=== PATIENT | female | born 1950 | race Caucasian/White ===

== ENCOUNTER 2023-07-30 11:39 | Inpatient (IN) | payer MEDICAID ==
[~2023-07-30] VITALS: Ht 157.5 cm; Wt 42.6 kg
[2023-07-30 12:11] LABS: BASOPHILS % (AUTO) 0.4 % (0.0-2.0); EOSINOPHILS % (AUTO) 0.3 % (1.0-6.0); HEMATOCRIT 44.2 % (36-46); HEMOGLOBIN 14.8 g/dL (12.0-16.0); LYMPHOCYTES # (AUTO) 0.9 K/uL (1.0-4.8); MEAN CORPUSCULAR HEMOGLOBIN 30.7 pg (26.0-34.0); MEAN CORPUSCULAR HGB CONC 33.5 G/dL (31.0-37.0); MEAN CORPUSCULAR VOLUME 92 fL (80-100); MONOCYTES # (AUTO) 0.4 K/uL (0.1-1.0); MONOCYTES % (AUTO) 6.5 % (2.0-9.0); NEUTROPHILS # (AUTO) 4.2 K/uL (1.8-7.7); NEUTROPHILS % (AUTO) 76.8 % (40.0-70.0); PLATELET COUNT (AUTO) 183 K/uL (150-450); RED BLOOD CELL COUNT(AUTO) 4.82 MIL/uL (4.00-5.20); RED CELL DISTRIBUTION WIDTH 13.2 % (11.5-14.5); WHITE BLOOD COUNT (AUTO) 5.5 K/uL (4.5-11.0)
[2023-07-30 12:19] LABS: ANION GAP 12 mmol/L (8-16); CALCIUM, TOTAL 8.9 mg/dL (8.8-10.5); CARBON DIOXIDE 26 mmol/L (22-29); CHLORIDE 107 mmol/L (98-107); GLOMERULAR FILTR. RATE CALC > 60 mL/min (>60); GLUCOSE,RANDOM 163 mg/dL (70-110); POTASSIUM 3.2 mmol/L (3.5-5.1); SODIUM SERUM 145 mmol/L (136-145); UREA NITROGEN, BLOOD 17 mg/dL (7-18)
[2023-07-30 12:27] LABS: ALANINE AMINOTRANSFERASE 22 U/L (12-78); ALBUMIN 3.6 g/dL (3.4-5.0); ALKALINE PHOSPHATASE 91 U/L (46-116); ASPARTATE AMINOTRANSFERASE 17 U/L (15-37); BILIRUBIN,TOTAL 0.3 mg/dL (0.1-1.0); TOTAL PROTEIN, SERUM 6.9 g/dL (6.4-8.2)
[2023-07-30 12:29] LABS: ALCOHOL, BLOOD (SERUM) < 3 mg/dL (0-10)
[2023-07-30] MEDS ORDERED: DiphenhydrAMINE HCL 50 MG/ML VIAL ONE (12:50)
[2023-07-30] MEDS ORDERED: HALOPERIDOL LACTATE 5 MG/ML VIAL ONE (12:50)
[2023-07-30] MEDS ORDERED: LORazepam 2 MG/ML VIAL ONE (12:50)
[2023-07-30] MEDS: DiphenhydrAMINE HCL 50 MG/ML VIAL IM ONE (12:55)
[2023-07-30] MEDS: LORazepam 2 MG/ML VIAL IM ONE ×2 (12:55→17:03)
[2023-07-30] MEDS: HALOPERIDOL LACTATE 5 MG/ML VIAL IM ONE ×2 (12:56→17:05)
[2023-07-30] MEDS: POTASSIUM CHLORIDE 10% 40 MEQ/30 ML LIQUID UDCUP PO ONE (15:02)
[2023-07-30] MEDS ORDERED: LORA-1000 PO (15:41)
[2023-07-30] MEDS: LORazepam 1 MG TABLET PO ONE (15:58)
[2023-07-30] MEDS: QUEtiapine FUMARATE 100 MG TABLET PO ONE ×2 (15:58→21:02)
[2023-08-01] MEDS: LORazepam 1 MG TABLET PO ONE (04:36)
[2023-08-01] MEDS: HALOPERIDOL 5 MG TABLET PO ONE (05:30)
[2023-08-01] MEDS: HALOPERIDOL LACTATE 5 MG/ML VIAL IM ONE ×2 (05:45→06:05)
[2023-08-01] MEDS: DiphenhydrAMINE HCL 50 MG/ML VIAL IM ONE ×2 (05:45→06:04)
[2023-08-01 19:26] LABS: PH,URINE DRUG SCREEN 6.5 (5.0-8.0)
[2023-08-01 19:32] LABS: ALCOHOL, URINE DRUG SCREEN NEGATIVE (NEGATIVE); AMPHET/METH SCREEN,URINE NEGATIVE (NEGATIVE); BARBITURATE SCREEN, URINE NEGATIVE (NEGATIVE); BENZODIAZEPINES SCREEN,URINE NEGATIVE (NEGATIVE); CANNABINOID SCREEN,URINE NEGATIVE (NEGATIVE); COCAINE SCREEN,URINE NEGATIVE (NEGATIVE); METHADONE SCREEN, URINE NEGATIVE (NEGATIVE); OPIATE SCREEN,URINE NEGATIVE (NEGATIVE); PHENCYCLIDINE SCREEN,URINE NEGATIVE (NEGATIVE)
[2023-08-02] MEDS: ZIPRASIDONE MESYLATE 20 MG/VIAL IM ONE ×2 (00:09→19:36)
[2023-08-02 07:58] LABS: COVID AG,FIA SOURCE NASAL SWAB
[2023-08-02 08:35] LABS: SARS-COV2 (COVID) ANTIGEN,FIA Negative (Negative)
[2023-08-02] MEDS ORDERED: SERT-158 PO (13:49)
[2023-08-02] MEDS ORDERED: QUET100T PO (13:49)
[2023-08-02] MEDS ORDERED: QUET200T PO (13:49)
[2023-08-02] MEDS: ZOLPIDEM TARTRATE 10 MG TABLET PO PRN (23:07)
[2023-08-02] MEDS: LORazepam 2 MG TABLET PO PRN (23:08)
[2023-08-03] MEDS: QUEtiapine FUMARATE 100 MG TABLET PO ONE ×2 (08:56→19:51)
[2023-08-04] MEDS ORDERED: OLANZapine 5 MG TABLET ONE (13:53)
[2023-08-04] MEDS: OLANZapine 5 MG TABLET PO PRN (13:55)
[2023-08-04] MEDS ORDERED: HALOPERIDOL LACTATE 5 MG/ML VIAL ONE (14:21)
[2023-08-04] MEDS ORDERED: LORazepam 2 MG/ML VIAL ONE (14:21)
[2023-08-04] MEDS ORDERED: DiphenhydrAMINE HCL 50 MG/ML VIAL ONE (14:21)
[2023-08-04] MEDS: HALOPERIDOL LACTATE 5 MG/ML VIAL IM ONE (14:24)
[2023-08-04] MEDS: LORazepam 2 MG/ML VIAL IM ONE (14:25)
[2023-08-04] MEDS: DiphenhydrAMINE HCL 50 MG/ML VIAL IM ONE (14:25)
[2023-08-05 03:35] LABS: BASOPHILS % (AUTO) 0.5 % (0.0-2.0); EOSINOPHILS % (AUTO) 0.8 % (1.0-6.0); HEMATOCRIT 45.2 % (36-46); HEMOGLOBIN 15.4 g/dL (12.0-16.0); LYMPHOCYTES # (AUTO) 1.3 K/uL (1.0-4.8); LYMPHOCYTES % (AUTO) 25.6 % (22.0-44.0); MEAN CORPUSCULAR HEMOGLOBIN 31.1 pg (26.0-34.0); MEAN CORPUSCULAR HGB CONC 34.1 G/dL (31.0-37.0); MEAN CORPUSCULAR VOLUME 91 fL (80-100); MONOCYTES # (AUTO) 0.6 K/uL (0.1-1.0); MONOCYTES % (AUTO) 10.9 % (2.0-9.0); NEUTROPHILS # (AUTO) 3.2 K/uL (1.8-7.7); NEUTROPHILS % (AUTO) 62.2 % (40.0-70.0); PLATELET COUNT (AUTO) 175 K/uL (150-450); RED BLOOD CELL COUNT(AUTO) 4.97 MIL/uL (4.00-5.20); RED CELL DISTRIBUTION WIDTH 13.2 % (11.5-14.5); WHITE BLOOD COUNT (AUTO) 5.2 K/uL (4.5-11.0)
[2023-08-05 03:50] LABS: ALANINE AMINOTRANSFERASE 33 U/L (12-78); ALBUMIN 3.4 g/dL (3.4-5.0); ALKALINE PHOSPHATASE 84 U/L (46-116); ANION GAP 9 mmol/L (8-16); ASPARTATE AMINOTRANSFERASE 38 U/L (15-37); BILIRUBIN,TOTAL 0.7 mg/dL (0.1-1.0); CALCIUM, TOTAL 9.2 mg/dL (8.8-10.5); CARBON DIOXIDE 28 mmol/L (22-29); CHLORIDE 103 mmol/L (98-107); CREATININE 0.54 mg/dL (0.60-1.30); GLOMERULAR FILTR. RATE CALC > 60 mL/min (>60); GLUCOSE,RANDOM 88 mg/dL (70-110); SODIUM SERUM 140 mmol/L (136-145); TOTAL PROTEIN, SERUM 6.5 g/dL (6.4-8.2); UREA NITROGEN, BLOOD 18 mg/dL (7-18)
[2023-08-05] MEDS: QUEtiapine FUMARATE 100 MG TABLET PO SCH ×2 (09:11→21:28)
[2023-08-05] MEDS: POTASSIUM CHLORIDE 10% 40 MEQ/30 ML LIQUID UDCUP PO ONE ×2 (14:37→17:21)
[2023-08-05] MEDS ORDERED: MAG HYDROX/ALUMINUM HYD/SIMETH ES 30 ML SUSPENSION UDCUP PO PRN (20:30)
[2023-08-05] MEDS ORDERED: ALBUTEROL SULFATE HFA 90 MCG/PUFF 8 GM INHALER IH PRN (20:30)
[2023-08-05] MEDS ORDERED: NICOTINE 14 MG/24 HOUR PATCH TD PRN (20:30)
[2023-08-05] MEDS ORDERED: PETROLATUM,WHITE 28 GM JELLY TP PRN (20:30)
[2023-08-05] MEDS ORDERED: ONDANSETRON HCL 4 MG TABLET PO PRN (20:30)
[2023-08-05] MEDS ORDERED: IBUPROFEN 400 MG TABLET PO PRN (20:30)
[2023-08-05] MEDS ORDERED: DOCUSATE SODIUM 100 MG CAPSULE PO PRN (20:30)
[2023-08-05] MEDS ORDERED: CloNIDine HCL 0.1 MG TABLET PO PRN (20:30)
[2023-08-05] MEDS: LORazepam 2 MG TABLET PO PRN (21:28)
[2023-08-05 22:38] LABS: APPEARANCE,URINE HAZY (CLEAR); BILIRUBIN,URINE NEGATIVE (NEGATIVE); COLOR,URINE YELLOW (YELLOW); GLUCOSE, URINE (UA) TRACE mg/dL (NEGATIVE); KETONES,URINE TRACE mg/dL (NEGATIVE); LEUKOCYTE ESTERASE ,URINE LARGE (NEGATIVE); NITRATE,URINE NEGATIVE (NEGATIVE); OCCULT BLOOD,URINE NEGATIVE (NEGATIVE); PH,URINE 6.5 (5.0-8.0); PROTEIN,URINE TRACE mg/dL (NEGATIVE); SPECIFIC GRAVITIY, URINE 1.023 (1.003-1.030); UROBILINOGEN,URINE <=1.0 mg/dL (<=1.0)
[2023-08-05 22:49] LABS: RBC,URINE None Seen /HPF (0-2); SQUAMOUS EPITHELIAL CELL,UR Few /LPF (None Seen); WBC,URINE 26-50 /HPF (0-5)
[2023-08-05 22:50] LABS: BACTERIA,URINE Few /HPF (None Seen)
[2023-08-06 01:02] VITALS: BP 142/80; PULSE 84; RESP 18; TEMP 97.8; O2SAT 100
[2023-08-06 01:25] VITALS: BP 142/80; PULSE 84; RESP 18; TEMP 97.8
[2023-08-06 06:36] LABS: HEMOGLOBIN A1C 5.5 % (3.8-5.6)
[2023-08-06 07:41] LABS: CHOL/HDL RATIO 2.1 (3.9-5.7); THYROID STIMULATING HORMONE 0.92 uIU/mL (0.36-3.74)
[2023-08-06 08:31] VITALS: BP 147/89; PULSE 101; RESP 20; TEMP 98
[2023-08-06] MEDS: POTASSIUM CHLORIDE 10% 40 MEQ/30 ML LIQUID UDCUP PO ONE (10:39)
[2023-08-06] MEDS: CEPHALEXIN MONOHYDRATE 500 MG CAPSULE PO SCH (12:39)
[2023-08-06 22:17] VITALS: BP 136/73; PULSE 100; RESP 18; TEMP 98.4
[2023-08-07 07:46] LABS: MAGNESIUM 2.2 mg/dL (1.80-2.40); PHOSPHORUS 4.5 mg/dL (2.5-4.9); POTASSIUM 4.2 mmol/L (3.5-5.1)
[2023-08-07] MEDS: MULTIVITAMINS WITH MINERALS, THERAPEUTIC TABLET PO SCH (09:03)
[2023-08-07] MEDS: THIAMINE 100 MG TABLET PO SCH (09:03)
[2023-08-07 09:15] VITALS: BP 123/78; PULSE 101; PULSE 11; RESP 18; TEMP 98
[2023-08-07 20:11] VITALS: BP 121/71; PULSE 77; RESP 18; TEMP 97.3
[2023-08-08 09:22] VITALS: BP 142/99; PULSE 79; RESP 18; TEMP 98
[2023-08-08 23:15] VITALS: RESP 18
[2023-08-09 08:38] VITALS: BP 137/67; PULSE 87; RESP 18; TEMP 97.5
[2023-08-09] MEDS: OLANZapine 5 MG TABLET PO PRN (17:16)
[2023-08-09 20:13] VITALS: BP 153/75; PULSE 100; RESP 18; TEMP 96.7
[2023-08-10 09:09] VITALS: BP 111/92; PULSE 97; RESP 18; TEMP 98
[2023-08-10 20:07] VITALS: BP 147/80; PULSE 94; RESP 18; TEMP 98.9
[2023-08-11 09:17] VITALS: BP 122/66; PULSE 103; RESP 18; TEMP 98.3
[2023-08-11] MEDS: OLANZapine 5 MG RAPDIS TABLET PO PRN (16:00)
[2023-08-11 20:42] VITALS: BP 140/81; PULSE 98; RESP 19; TEMP 98.7
[2023-08-12 08:58] VITALS: BP 134/67; PULSE 91; RESP 20; TEMP 98.7
[2023-08-12 21:12] VITALS: BP 108/67; PULSE 66; RESP 18; TEMP 98.1
[2023-08-13 08:10] VITALS: BP 141/57; PULSE 103; RESP 18; TEMP 98
[2023-08-13 22:04] VITALS: BP 146/90; PULSE 100; RESP 18; TEMP 98.1
[2023-08-14 11:53] VITALS: BP 148/78; PULSE 93; RESP 18; TEMP 98
[2023-08-14] MEDS: LORazepam 2 MG/ML VIAL IM ONE (18:13)
[2023-08-14 20:14] VITALS: BP 132/82; PULSE 86; RESP 18; TEMP 97.9
[2023-08-15 20:42] VITALS: BP 145/69; PULSE 94; RESP 18; TEMP 97.8
[2023-08-16 08:42] VITALS: BP 129/75; PULSE 105; RESP 18; TEMP 98.1
[2023-08-16 20:04] VITALS: BP 155/73; PULSE 105; RESP 18; TEMP 99.1
[2023-08-17 13:04] VITALS: BP 112/69; PULSE 93; RESP 17; TEMP 98
[2023-08-17 20:11] VITALS: BP 135/82; PULSE 102; RESP 18; TEMP 96.5
[2023-08-18 08:24] VITALS: BP 113/85; PULSE 108; RESP 18; TEMP 98.2
[2023-08-18 20:31] VITALS: BP 119/81; PULSE 106; RESP 18; TEMP 97.6
[2023-08-19 10:35] VITALS: BP 136/61; PULSE 75; RESP 18; TEMP 98
[2023-08-19 20:31] VITALS: BP 108/66; PULSE 105; RESP 19; TEMP 98.2
[2023-08-19] MEDS: QUEtiapine FUMARATE 300 MG TABLET PO SCH (21:23)
[2023-08-20 09:40] VITALS: BP 142/58; PULSE 104; RESP 18; TEMP 97.7
[2023-08-20 20:44] VITALS: BP 131/79; PULSE 98; RESP 18; TEMP 98.1
[2023-08-21 08:42] VITALS: BP 146/88; PULSE 100; RESP 17; TEMP 97.7
[2023-08-21 20:36] VITALS: BP 154/94; PULSE 89; RESP 18; TEMP 97.9
[2023-08-22 08:13] VITALS: BP 132/82; PULSE 72; RESP 18; TEMP 98.1
[2023-08-22 20:05] VITALS: BP 139/76; PULSE 103; RESP 18; TEMP 97.9
[2023-08-23 02:03] LABS: COVID AG,FIA SOURCE NASAL SWAB
[2023-08-23 02:59] LABS: SARS-COV2 (COVID) ANTIGEN,FIA Negative (Negative)
[2023-08-23 09:12] VITALS: BP 143/95; PULSE 100; RESP 18; TEMP 97.8
[2023-08-23] MEDS: MEGESTROL ACETATE 400 MG/10 ML SUSPENSION UDCUP PO SCH (11:00)
[2023-08-23 20:15] VITALS: BP 137/79; PULSE 97; RESP 18; TEMP 98.6
[2023-08-24 05:55] VITALS: BP 130/86; PULSE 82; RESP 20; TEMP 98.1
[2023-08-24 08:39] VITALS: BP 95/65; PULSE 78; RESP 18; TEMP 98.2
[2023-08-24 14:05] LABS: BASOPHILS % (AUTO) 0.2 % (0.0-2.0); EOSINOPHILS % (AUTO) 0.3 % (1.0-6.0); HEMATOCRIT 47.2 % (36-46); HEMOGLOBIN 16.2 g/dL (12.0-16.0); LYMPHOCYTES # (AUTO) 1.1 K/uL (1.0-4.8); LYMPHOCYTES % (AUTO) 13.7 % (22.0-44.0); MEAN CORPUSCULAR HEMOGLOBIN 30.9 pg (26.0-34.0); MEAN CORPUSCULAR HGB CONC 34.4 G/dL (31.0-37.0); MEAN CORPUSCULAR VOLUME 90 fL (80-100); MONOCYTES # (AUTO) 0.5 K/uL (0.1-1.0); NEUTROPHILS # (AUTO) 6.2 K/uL (1.8-7.7); NEUTROPHILS % (AUTO) 78.8 % (40.0-70.0); PLATELET COUNT (AUTO) 199 K/uL (150-450); RED BLOOD CELL COUNT(AUTO) 5.25 MIL/uL (4.00-5.20); RED CELL DISTRIBUTION WIDTH 12.8 % (11.5-14.5); WHITE BLOOD COUNT (AUTO) 7.8 K/uL (4.5-11.0)
[2023-08-24 14:16] LABS: ALANINE AMINOTRANSFERASE 33 U/L (12-78); ALBUMIN 3.4 g/dL (3.4-5.0); ALKALINE PHOSPHATASE 106 U/L (46-116); ANION GAP 11 mmol/L (8-16); ASPARTATE AMINOTRANSFERASE 24 U/L (15-37); BILIRUBIN,TOTAL 0.5 mg/dL (0.1-1.0); CALCIUM, TOTAL 10.2 mg/dL (8.8-10.5); CARBON DIOXIDE 29 mmol/L (22-29); CHLORIDE 109 mmol/L (98-107); CREATININE 0.58 mg/dL (0.60-1.30); GLOMERULAR FILTR. RATE CALC > 60 mL/min (>60); GLUCOSE,RANDOM 114 mg/dL (70-110); SODIUM SERUM 148 mmol/L (136-145); TOTAL PROTEIN, SERUM 7.6 g/dL (6.4-8.2); UREA NITROGEN, BLOOD 30 mg/dL (7-18)
[2023-08-24 20:24] VITALS: BP 121/70; PULSE 86; RESP 18; TEMP 98
[2023-08-25 08:11] VITALS: BP 134/84; PULSE 76; RESP 18; TEMP 97.6
[2023-08-25] MEDS: POTASSIUM CHLORIDE 20 MEQ ER TABLET PO ONE (13:06)
[2023-08-25 20:22] VITALS: BP 130/80; PULSE 78; RESP 18; TEMP 97.8
[2023-08-26 08:21] VITALS: BP 128/77; PULSE 76; RESP 18; TEMP 97.1
[2023-08-26 20:25] VITALS: BP 128/72; PULSE 79; RESP 18; TEMP 97.9
[2023-08-26] MEDS: ZOLPIDEM TARTRATE 10 MG TABLET PO PRN (21:02)
[2023-08-26 21:19] LABS: COVID AG,FIA SOURCE NASAL SWAB
[2023-08-26 21:48] LABS: SARS-COV2 (COVID) ANTIGEN,FIA Negative (Negative)
[2023-08-27 07:19] LABS: ALANINE AMINOTRANSFERASE 64 U/L (12-78); ALBUMIN 3.4 g/dL (3.4-5.0); ALKALINE PHOSPHATASE 104 U/L (46-116); ANION GAP 10 mmol/L (8-16); ASPARTATE AMINOTRANSFERASE 30 U/L (15-37); BILIRUBIN,TOTAL 0.7 mg/dL (0.1-1.0); CALCIUM, TOTAL 10.2 mg/dL (8.8-10.5); CARBON DIOXIDE 29 mmol/L (22-29); CHLORIDE 110 mmol/L (98-107); CREATININE 0.61 mg/dL (0.60-1.30); GLOMERULAR FILTR. RATE CALC > 60 mL/min (>60); GLUCOSE,RANDOM 131 mg/dL (70-110); POTASSIUM 3.1 mmol/L (3.5-5.1); SODIUM SERUM 149 mmol/L (136-145); TOTAL PROTEIN, SERUM 7.5 g/dL (6.4-8.2); UREA NITROGEN, BLOOD 29 mg/dL (7-18)
[2023-08-27 12:31] VITALS: BP 123/70; PULSE 80; RESP 17; TEMP 98
[2023-08-27 20:52] VITALS: BP 127/81; PULSE 72; RESP 18; TEMP 98.1
[2023-08-28] MEDS: LOPERAMIDE HCL 2 MG CAPSULE PO PRN (03:35)
[2023-08-28 09:53] VITALS: BP 96/50; PULSE 100; RESP 18; TEMP 97.5
[2023-08-28] MEDS: POTASSIUM CHLORIDE 10% 40 MEQ/30 ML LIQUID UDCUP PO ONE (11:37)
[2023-08-29 04:00] VITALS: BP 132/78; PULSE 100; RESP 18
[2023-08-29] MEDS: ACETAMINOPHEN 325 MG TABLET PO PRN (04:01)
[2023-08-29 05:00] VITALS: RESP 18
[2023-08-29 08:35] VITALS: BP 99/80; PULSE 70; RESP 17; TEMP 98
[2023-08-29 08:43] VITALS: BP 99/60; PULSE 70; RESP 18; TEMP 98
[2023-08-29] MEDS: POTASSIUM CHLORIDE 10% 40 MEQ/30 ML LIQUID UDCUP PO ONE (12:18)
[2023-08-29 19:08] LABS: COVID AG,FIA SOURCE NASAL SWAB
[2023-08-29 19:40] LABS: SARS-COV2 (COVID) ANTIGEN,FIA Negative (Negative)
[2023-08-29 20:02] VITALS: BP 120/77; PULSE 72; RESP 18; TEMP 97.3
[2023-08-30] VITALS (8 sets, daily range): BP systolic 115–152; BP diastolic 69–98; PULSE 73–104; RESP 17–18; TEMP 97.6–98.8
[2023-08-31 08:00] VITALS: BP 141/76; PULSE 108; RESP 18; TEMP 97.8
[2023-08-31 21:19] VITALS: BP 119/72; PULSE 108; RESP 20; TEMP 97.9
[2023-09-01 08:45] VITALS: BP 124/68; PULSE 97; RESP 18; TEMP 97.4
[2023-09-01 20:32] VITALS: BP 117/74; PULSE 92; RESP 18; TEMP 97.6
[2023-09-02 08:55] VITALS: BP 137/86; PULSE 89; RESP 19; TEMP 98.2
[2023-09-02 20:04] VITALS: BP 129/82; PULSE 94; RESP 18; TEMP 97.2
[2023-09-03 08:52] VITALS: BP 120/75; PULSE 88; RESP 18; TEMP 98
[2023-09-03 19:36] VITALS: BP 131/78; PULSE 92; RESP 18; TEMP 98.8
[2023-09-03 20:59] VITALS: RESP 18
[2023-09-04 09:19] VITALS: BP 145/84; PULSE 76; RESP 18; TEMP 98.6
[2023-09-04] MEDS: POTASSIUM CHLORIDE 10% 40 MEQ/30 ML LIQUID UDCUP PO ONE (10:31)
[2023-09-04 17:12] LABS: ANION GAP 2 mmol/L (8-16); CALCIUM, TOTAL 9.3 mg/dL (8.8-10.5); CARBON DIOXIDE 30 mmol/L (22-29); CHLORIDE 104 mmol/L (98-107); CREATININE 0.61 mg/dL (0.60-1.30); GLOMERULAR FILTR. RATE CALC > 60 mL/min (>60); GLUCOSE,RANDOM 101 mg/dL (70-110); POTASSIUM 5.3 mmol/L (3.5-5.1); SODIUM SERUM 136 mmol/L (136-145); UREA NITROGEN, BLOOD 16 mg/dL (7-18)
[2023-09-04 20:48] VITALS: RESP 18; TEMP 98.3
[2023-09-05] MEDS ORDERED: LORazepam 2 MG/ML VIAL ONE (09:19)
[2023-09-05 10:03] VITALS: BP 134/101; PULSE 113; RESP 20; TEMP 96
[2023-09-05 20:01] VITALS: BP 101/74; PULSE 76; RESP 18; TEMP 97.6
[2023-09-06 08:19] VITALS: BP 106/57; PULSE 67; RESP 19; TEMP 96.7
[2023-09-06 20:01] VITALS: BP 114/58; PULSE 95; RESP 18; TEMP 98.9
[2023-09-07 09:06] VITALS: BP 104/52; PULSE 68; RESP 16; TEMP 98.6
[2023-09-07 23:58] VITALS: RESP 18
[2023-09-08 08:08] VITALS: BP 141/75; PULSE 86; RESP 17; TEMP 97.5
[2023-09-08 20:05] VITALS: BP 135/81; PULSE 95; RESP 18; TEMP 98
[2023-09-09 09:30] VITALS: BP 160/97; PULSE 104; RESP 18; TEMP 98.1
[2023-09-09 21:18] VITALS: BP 128/70; PULSE 87; RESP 18; TEMP 97.6
[2023-09-10 10:14] VITALS: BP 120/53; PULSE 92; RESP 18; TEMP 97.8
[2023-09-10 20:04] VITALS: BP 156/81; PULSE 101; RESP 18; TEMP 98
[2023-09-11 08:07] VITALS: BP 151/94; PULSE 95; RESP 19; TEMP 97.8
[2023-09-11 20:27] VITALS: BP 140/68; PULSE 97; RESP 18; TEMP 98.6
[2023-09-12 08:53] VITALS: BP 121/83; PULSE 98; RESP 18; TEMP 98.4
[2023-09-12 20:32] VITALS: BP 132/74; PULSE 83; RESP 17
[2023-09-13 08:42] VITALS: BP 110/70; PULSE 99; RESP 18; TEMP 98
[2023-09-13 20:03] VITALS: RESP 18
[2023-09-14 09:02] VITALS: BP 120/80; PULSE 90; RESP 17; TEMP 98
[2023-09-14 20:35] VITALS: BP 136/72; PULSE 95; RESP 17; TEMP 98.1
[2023-09-15 09:57] VITALS: BP 105/65; PULSE 51; RESP 18; TEMP 97.7
[2023-09-15 21:12] VITALS: BP 146/88; PULSE 98; RESP 20; TEMP 98.3
[2023-09-16 10:05] VITALS: BP 136/90; PULSE 76; RESP 17; TEMP 97.7
[2023-09-16 21:04] VITALS: BP 130/85; PULSE 75; RESP 18; TEMP 97.8
[2023-09-17 08:14] VITALS: BP 144/74; PULSE 97; RESP 18; TEMP 97.4
[2023-09-17 20:23] VITALS: BP 139/81; PULSE 87; RESP 18; TEMP 97.7
[2023-09-18 08:00] VITALS: BP 121/62; PULSE 96; RESP 18; TEMP 98.4
[2023-09-18 20:02] VITALS: BP 121/72; PULSE 62; RESP 18; TEMP 97.5
[2023-09-19 08:00] VITALS: BP 127/70; PULSE 100; RESP 16
[2023-09-19 20:45] VITALS: BP 145/85; PULSE 98; RESP 18; TEMP 98.3
[2023-09-20 08:05] VITALS: BP 123/73; PULSE 72; RESP 18; TEMP 98.1
[2023-09-20 20:01] VITALS: BP 133/80; PULSE 81; RESP 18; TEMP 97.9
[2023-09-21 08:54] VITALS: BP 137/73; PULSE 74; RESP 18; TEMP 97
[2023-09-21 20:36] VITALS: BP 137/77; PULSE 101; RESP 18; TEMP 98.4
[2023-09-22 08:00] VITALS: BP 149/100; PULSE 92; RESP 18; TEMP 98
[2023-09-22 20:22] VITALS: BP 138/81; PULSE 86; RESP 19; TEMP 97.8
[2023-09-23 09:19] VITALS: BP 137/84; PULSE 102; RESP 17; TEMP 98.1
[2023-09-23 20:18] VITALS: RESP 18; TEMP 98.2
[2023-09-24 08:12] VITALS: BP 138/76; PULSE 100; RESP 18; TEMP 97.9
[2023-09-24 22:41] VITALS: BP 127/84; PULSE 98; RESP 19; TEMP 97.6
[2023-09-25 08:43] VITALS: BP 132/86; PULSE 74; RESP 20; TEMP 97.3
[2023-09-25 21:20] VITALS: BP 130/80; PULSE 70; RESP 18; TEMP 97.7
[2023-09-26 09:05] VITALS: BP 140/100; PULSE 71; RESP 18; TEMP 97.9
[2023-09-26 20:07] VITALS: BP 138/95; PULSE 70; RESP 19; TEMP 97.8
[2023-09-27 08:37] VITALS: BP 152/78; PULSE 100; RESP 20; TEMP 98
[2023-09-27 21:05] VITALS: BP 133/81; PULSE 93; RESP 18; TEMP 97.9
[2023-09-28 13:45] VITALS: BP 139/115; PULSE 75; RESP 18; TEMP 98.3
[2023-09-28 20:04] VITALS: BP 125/65; PULSE 81; RESP 18; TEMP 97.8
[2023-09-29 15:21] VITALS: BP 152/89; PULSE 97; RESP 18; TEMP 97.8
[2023-09-29 20:15] VITALS: BP 125/66; PULSE 92; RESP 18; TEMP 97.6
[2023-09-30 16:12] VITALS: BP 153/83; PULSE 109; RESP 19; TEMP 98
[2023-09-30 20:23] VITALS: RESP 18
[2023-10-01 09:35] VITALS: BP 120/79; PULSE 80; RESP 16; TEMP 97.6
[2023-10-01 20:09] VITALS: RESP 18
[2023-10-02 09:40] VITALS: BP 138/80; PULSE 89; RESP 18; TEMP 97.8
[2023-10-02 21:42] VITALS: BP 142/83; PULSE 96; RESP 18; TEMP 97.3
[2023-10-03 09:14] VITALS: BP 145/72; PULSE 95; RESP 19; TEMP 98.1
[2023-10-03 16:47] VITALS: BP 130/83; PULSE 92; RESP 18; TEMP 97.8
[2023-10-03 20:28] VITALS: BP 128/57; PULSE 90; RESP 18; TEMP 97.9
[2023-10-04 08:50] VITALS: BP 141/75; PULSE 62; RESP 18; TEMP 97
[2023-10-04 10:25] LABS: ALANINE AMINOTRANSFERASE 28 U/L (12-78); ALBUMIN 3.4 g/dL (3.4-5.0); ALKALINE PHOSPHATASE 80 U/L (46-116); ANION GAP 7 mmol/L (8-16); ASPARTATE AMINOTRANSFERASE 18 U/L (15-37); BILIRUBIN,TOTAL 0.5 mg/dL (0.1-1.0); CARBON DIOXIDE 32 mmol/L (22-29); CHLORIDE 104 mmol/L (98-107); CREATININE 0.75 mg/dL (0.60-1.30); GLOMERULAR FILTR. RATE CALC > 60 mL/min (>60); GLUCOSE,RANDOM 144 mg/dL (70-110); POTASSIUM 3.3 mmol/L (3.5-5.1); SODIUM SERUM 143 mmol/L (136-145); TOTAL PROTEIN, SERUM 7.3 g/dL (6.4-8.2); UREA NITROGEN, BLOOD 26 mg/dL (7-18)
[2023-10-04] MEDS: POTASSIUM CHLORIDE 10% 40 MEQ/30 ML LIQUID UDCUP PO ONE (20:36)
[2023-10-04 20:50] VITALS: BP 150/95; PULSE 72; RESP 18; TEMP 97.7
[2023-10-05 08:41] VITALS: BP 148/85; PULSE 104; RESP 19; TEMP 97.6
[2023-10-05] MEDS: POTASSIUM CHLORIDE 10% 40 MEQ/30 ML LIQUID UDCUP PO ONE (14:27)
[2023-10-05 20:07] VITALS: BP 133/79; PULSE 98; RESP 17; TEMP 97.4
[2023-10-06 08:36] VITALS: BP 123/75; PULSE 97; RESP 18; TEMP 97.6
[2023-10-06 21:00] VITALS: BP 107/86; PULSE 103; RESP 18; TEMP 97.2
[2023-10-07 08:03] VITALS: BP 112/72; PULSE 7; PULSE 72; RESP 18; TEMP 98.1
[2023-10-07] MEDS: LORazepam 2 MG/ML VIAL IM ONE (11:48)
[2023-10-07 20:19] VITALS: BP 117/77; PULSE 84; RESP 18; TEMP 98
[2023-10-08 10:35] VITALS: RESP 18; TEMP 97.2
[2023-10-08 20:21] VITALS: BP 147/83; PULSE 107; RESP 18; TEMP 98.4
[2023-10-09 09:03] VITALS: BP 149/64; PULSE 82; RESP 18; TEMP 98.1
[2023-10-09 20:02] VITALS: BP 123/77; PULSE 72; RESP 18; TEMP 98.1
[2023-10-10 08:49] VITALS: BP 96/63; PULSE 99; RESP 19; TEMP 97.5
[2023-10-10 21:22] VITALS: BP 112/81; PULSE 78; RESP 18; TEMP 97.1
[2023-10-11 08:51] VITALS: BP 100/64; PULSE 69; RESP 17; TEMP 97.6
[2023-10-11 08:54] VITALS: BP 136/82; PULSE 92; RESP 18; TEMP 97.3
[2023-10-11 20:13] VITALS: BP 124/76; PULSE 82; RESP 18; TEMP 97.1
[2023-10-12 08:44] VITALS: BP 124/76; PULSE 86; RESP 18; TEMP 97.1
[2023-10-12 20:51] VITALS: BP 152/83; PULSE 103; RESP 18; TEMP 98
[2023-10-13 08:00] VITALS: BP 159/83; PULSE 110; RESP 20
[2023-10-13 21:54] VITALS: BP 130/80; PULSE 86; RESP 18; TEMP 97.6
[2023-10-14 08:08] VITALS: BP 133/88; PULSE 88; RESP 20; TEMP 98
[2023-10-14 20:12] VITALS: BP 121/77; PULSE 82; RESP 18; TEMP 97.1
[2023-10-15 08:31] VITALS: BP 131/81; PULSE 77; RESP 17; TEMP 98
[2023-10-15 20:04] VITALS: BP 119/77; PULSE 74; RESP 18; TEMP 97.3
[2023-10-16 12:42] VITALS: BP 123/80; PULSE 80; RESP 17; TEMP 98
[2023-10-17] MEDS: LORazepam 1 MG TABLET PO PRN (08:26)
[2023-10-17 09:07] VITALS: BP 113/66; PULSE 84; RESP 18; TEMP 98.4
[2023-10-17 20:20] VITALS: BP 138/92; PULSE 86; RESP 18; TEMP 98.2
[2023-10-18 11:14] VITALS: BP 132/94; PULSE 112; RESP 18; TEMP 97.4
[2023-10-18 22:04] VITALS: BP 125/80; PULSE 99; RESP 17; TEMP 98
[2023-10-19] MEDS: BISACODYL 10 MG RECTAL RECTAL SUPPOSITORY PR SCH (08:13)
[2023-10-19] MEDS: ESCITALOPRAM OXALATE 10 MG TABLET PO SCH (08:13)
[2023-10-19 13:36] VITALS: RESP 18
[2023-10-19 20:45] VITALS: RESP 18
[2023-10-20 08:00] VITALS: BP 148/95; PULSE 95; RESP 20; TEMP 98.4
[2023-10-20 20:42] VITALS: BP 148/83; PULSE 94; RESP 17; TEMP 98.4
[2023-10-21 11:24] VITALS: BP 148/85; PULSE 96; RESP 18; TEMP 96.6
[2023-10-21 20:36] VITALS: BP 110/68; PULSE 99; RESP 18; TEMP 98.4
[2023-10-22 09:06] VITALS: BP 129/93; PULSE 89; RESP 18; TEMP 98.2
[2023-10-22 20:44] VITALS: BP 121/77; PULSE 96; RESP 18; TEMP 97.9
[2023-10-23 08:30] VITALS: BP 150/76; PULSE 89; RESP 18; TEMP 98.2
[2023-10-23 20:38] VITALS: BP 139/86; PULSE 85; RESP 18; TEMP 98.9
[2023-10-24 08:13] VITALS: BP 125/88; PULSE 95; RESP 18; TEMP 97.5
[2023-10-24 20:03] VITALS: BP 128/81; PULSE 74; RESP 17; TEMP 97.9
[2023-10-25 09:19] VITALS: BP 104/79; PULSE 79; RESP 18; TEMP 97.8
[2023-10-25 20:36] VITALS: BP 124/80; PULSE 76; RESP 18; TEMP 97.4
[2023-10-26 09:26] VITALS: BP 122/80; PULSE 100; RESP 18; TEMP 98.9
[2023-10-26 20:19] VITALS: BP 136/69; PULSE 89; RESP 19; TEMP 98.1
[2023-10-27 08:08] VITALS: BP 103/75; PULSE 81; RESP 19; TEMP 98.9
[2023-10-27 20:49] VITALS: RESP 18; TEMP 98.9
[2023-10-28] MEDS: LORazepam 0.5 MG TABLET PO PRN (08:50)
[2023-10-28 11:02] VITALS: BP 143/76; PULSE 107; RESP 18; TEMP 97.4
[2023-10-28 20:04] VITALS: BP 121/79; PULSE 82; RESP 18; TEMP 97.3
[2023-10-29 08:31] VITALS: BP 120/42; PULSE 67; RESP 16; TEMP 98.5
[2023-10-29 22:51] VITALS: BP 125/84; PULSE 91; RESP 18; TEMP 98.4
[2023-10-30 09:00] VITALS: BP 138/90; PULSE 103; RESP 18; TEMP 97.5
[2023-10-30 20:24] VITALS: BP 125/71; PULSE 62; RESP 18; TEMP 97.1
[2023-10-31 10:30] VITALS: BP 129/87; PULSE 95; RESP 16; TEMP 97.3
[2023-10-31 20:04] VITALS: BP 121/82; PULSE 101; RESP 18; TEMP 98.5
[2023-10-31 20:50] VITALS: BP 121/82; PULSE 101; RESP 18; TEMP 98.5
[2023-11-01 08:20] VITALS: BP 148/90; PULSE 103; RESP 18; TEMP 98.6
[2023-11-01 20:10] VITALS: BP 131/75; PULSE 97; RESP 18; TEMP 98.2
[2023-11-02 16:59] VITALS: BP 120/70; PULSE 70; RESP 20; TEMP 98
[2023-11-02 20:20] VITALS: BP 134/89; PULSE 60; RESP 16; TEMP 98.2
[2023-11-02 22:28] VITALS: BP 134/89; PULSE 60; RESP 18; TEMP 98.2
[2023-11-03 09:00] VITALS: BP 134/55; PULSE 82; RESP 18; TEMP 98.6
[2023-11-03 20:36] VITALS: BP 126/75; PULSE 77; RESP 18; TEMP 98.4
[2023-11-04 09:24] VITALS: BP 123/90; PULSE 98; RESP 18; TEMP 97.8
[2023-11-04 20:26] VITALS: BP 137/92; PULSE 88; RESP 18; TEMP 98.1
[2023-11-04] MEDS: VALPROIC ACID 250 MG CAPSULE PO SCH (20:54)
[2023-11-05 13:03] VITALS: RESP 18; TEMP 97.5
[2023-11-05 20:03] VITALS: BP 137/80; PULSE 97; RESP 18; TEMP 97.8
[2023-11-05] MEDS: VALPROIC ACID 250 MG/5 ML SOLUTION UDCUP PO SCH (21:15)
[2023-11-06 08:14] VITALS: BP 141/91; PULSE 97; RESP 17; TEMP 98.3
[2023-11-06 21:24] VITALS: BP 115/73; PULSE 100; RESP 18; TEMP 97.8
[2023-11-07 08:23] VITALS: BP 120/67; PULSE 106; RESP 17; TEMP 98.6
[2023-11-07 20:10] VITALS: BP 116/81; PULSE 62; RESP 18; TEMP 97.1
[2023-11-07 20:33] VITALS: BP 119/73; PULSE 98; RESP 18; TEMP 97.7
[2023-11-08 08:04] VITALS: BP 130/61; PULSE 58; RESP 18; TEMP 97.6
[2023-11-08 20:12] VITALS: BP 166/60; PULSE 99; RESP 18; TEMP 98
[2023-11-09 10:12] VITALS: BP 131/79; PULSE 96; RESP 18; TEMP 98
[2023-11-09 20:09] VITALS: RESP 18
[2023-11-10 08:29] VITALS: BP 108/65; PULSE 81; RESP 18; TEMP 98.6
[2023-11-10 20:15] VITALS: RESP 18; TEMP 98.4
[2023-11-11 09:43] VITALS: RESP 18; TEMP 98.4
[2023-11-11 20:57] VITALS: BP 118/67; PULSE 99; RESP 18; TEMP 99.2
[2023-11-12 08:00] VITALS: BP 133/75; PULSE 83; RESP 18; TEMP 96.9
[2023-11-12 20:06] VITALS: BP 121/77; PULSE 84; RESP 18; TEMP 97.3
[2023-11-13 10:07] VITALS: BP 128/76; PULSE 78; RESP 18; TEMP 97.8
[2023-11-13 20:20] VITALS: BP 138/74; PULSE 88; RESP 17; TEMP 98
[2023-11-14 08:40] VITALS: BP 120/67; PULSE 76; RESP 18; TEMP 97.8
[2023-11-14 20:26] VITALS: BP 118/71; PULSE 92; RESP 18; TEMP 97.8
[2023-11-15 13:16] VITALS: BP 121/78; PULSE 86; RESP 18; TEMP 98.1
[2023-11-15 20:01] VITALS: BP 102/77; PULSE 75; RESP 18; TEMP 97.8
[2023-11-16 08:12] VITALS: BP 140/69; PULSE 102; RESP 18; TEMP 98.2
[2023-11-16 20:53] VITALS: BP 123/64; PULSE 79; RESP 18; TEMP 98.9
[2023-11-17 08:37] VITALS: BP 130/70; PULSE 86; RESP 17; TEMP 98
[2023-11-17] MEDS: GuaiFENesin/D-METHORPHAN [SUGAR-FREE] 200-20MG/10 ML SYRUP UDCUP PO PRN (09:10)
[2023-11-17 22:01] VITALS: BP 121/75; PULSE 86; RESP 18; TEMP 97.9
[2023-11-18 08:26] VITALS: BP 118/75; PULSE 75; RESP 18; TEMP 98
[2023-11-18 20:40] VITALS: BP 125/81; PULSE 79; RESP 18; TEMP 97.8
[2023-11-19 15:09] VITALS: BP 139/78; PULSE 90; RESP 17; TEMP 98.4
[2023-11-19 20:11] VITALS: BP 132/81; PULSE 84; RESP 18; TEMP 97.3
[2023-11-20 08:44] VITALS: BP 136/75; PULSE 86; RESP 17; TEMP 98
[2023-11-20 20:05] VITALS: BP 119/79; PULSE 72; RESP 18; TEMP 97.1
[2023-11-21 08:11] VITALS: BP 130/87; PULSE 79; RESP 17; TEMP 98.2
[2023-11-21 21:00] VITALS: BP 114/79; PULSE 87; RESP 18; TEMP 99
[2023-11-22 09:18] VITALS: BP 130/72; PULSE 84; RESP 18; TEMP 97.8
[2023-11-22 20:30] VITALS: BP 115/69; PULSE 96; RESP 18; TEMP 98.5
[2023-11-23 09:33] VITALS: BP 116/68; PULSE 92; RESP 18; TEMP 98.1
[2023-11-23 20:01] VITALS: BP 144/74; PULSE 99; RESP 20; TEMP 97.4
[2023-11-24 09:15] VITALS: BP 117/73; PULSE 99; RESP 18; TEMP 97.6
[2023-11-24] MEDS: ESCITALOPRAM OXALATE 10 MG TABLET PO SCH (09:22)
[2023-11-24 20:42] VITALS: BP 107/63; PULSE 102; RESP 18; TEMP 97.2
[2023-11-25 09:40] VITALS: BP 150/83; PULSE 97; RESP 18; TEMP 98
[2023-11-25 21:36] VITALS: BP 119/76; PULSE 72; RESP 18; TEMP 98.1
[2023-11-26 09:08] VITALS: BP 125/55; PULSE 97; RESP 17; TEMP 98
[2023-11-26 20:04] VITALS: BP 116/76; PULSE 76; RESP 18; TEMP 97.1
[2023-11-27 08:35] VITALS: BP 143/88; PULSE 79; RESP 18; TEMP 97.7
[2023-11-27 21:19] VITALS: BP 126/56; PULSE 96; RESP 18; TEMP 97
[2023-11-28 09:12] VITALS: BP 143/93; PULSE 75; RESP 18; TEMP 98
[2023-11-28 20:10] VITALS: BP 133/66; PULSE 86; RESP 18; TEMP 97.8
[2023-11-29 09:21] VITALS: BP 131/56; PULSE 53; RESP 18; TEMP 97.9
[2023-11-29 22:08] VITALS: BP 103/64; PULSE 74; RESP 18; TEMP 98.5
[2023-11-30 08:23] VITALS: BP 122/62; PULSE 96; RESP 18; TEMP 97.3
[2023-11-30 20:17] VITALS: BP 132/76; PULSE 70; RESP 18; TEMP 98.9
[2023-12-01 08:08] VITALS: BP 130/80; PULSE 77; RESP 18; TEMP 98
[2023-12-01 20:27] VITALS: BP 132/84; PULSE 86; RESP 18; TEMP 98
[2023-12-02 06:22] LABS: COVID AG,FIA SOURCE NASAL SWAB
[2023-12-02 06:40] LABS: SARS-COV2 (COVID) ANTIGEN,FIA Negative (Negative)
[2023-12-02 08:39] VITALS: BP 131/75; PULSE 78; RESP 17; TEMP 98.3
[2023-12-02 20:08] VITALS: BP 105/65; PULSE 99; RESP 18; TEMP 98.4
[2023-12-03 08:32] VITALS: BP 125/82; PULSE 78; RESP 18; TEMP 97.5
[2023-12-03 20:12] VITALS: BP 124/79; PULSE 72; RESP 19; TEMP 97.1
[2023-12-03 20:18] VITALS: BP 124/78; PULSE 72; RESP 18; TEMP 97.2
[2023-12-04 12:47] VITALS: PULSE 80; RESP 18; TEMP 97.7
[2023-12-04 20:48] VITALS: RESP 19; TEMP 97.3
[2023-12-05 08:28] VITALS: BP 100/58; PULSE 90; RESP 18; TEMP 98.4
[2023-12-05 20:03] VITALS: BP 123/81; PULSE 72; RESP 18; TEMP 98.1
[2023-12-06 09:12] VITALS: BP 121/63; PULSE 97; RESP 18; TEMP 98.4
[2023-12-06 21:00] VITALS: RESP 18
[2023-12-07 08:33] VITALS: BP 146/81; PULSE 91; RESP 18; TEMP 97.6
[2023-12-07 21:08] VITALS: BP 129/76; PULSE 90; RESP 18; TEMP 98.4
[2023-12-08 08:30] VITALS: BP 100/59; PULSE 85; RESP 16; TEMP 97.5
[2023-12-08 20:44] VITALS: RESP 18; TEMP 97.8
[2023-12-09 09:17] VITALS: BP 113/58; PULSE 66; RESP 19; TEMP 97.7
[2023-12-09 20:53] VITALS: BP 140/79; PULSE 89; RESP 18; TEMP 97.6
[2023-12-10] MEDS: MAGNESIUM HYDROXIDE SUSPENSION 30 ML UDCUP PO PRN (04:05)
[2023-12-10 15:25] VITALS: BP 132/76; PULSE 78; RESP 18; TEMP 97.2
[2023-12-10 20:08] VITALS: BP 124/77; PULSE 72; RESP 18; TEMP 97.3
[2023-12-11 08:05] VITALS: BP 121/76; PULSE 76; RESP 18; TEMP 98.1
[2023-12-11 08:07] LABS: BASOPHILS % (AUTO) 0.6 % (0.0-2.0); EOSINOPHILS % (AUTO) 0.4 % (1.0-6.0); HEMATOCRIT 49.2 % (36-46); HEMOGLOBIN 16.5 g/dL (12.0-16.0); LYMPHOCYTES # (AUTO) 1.6 K/uL (1.0-4.8); LYMPHOCYTES % (AUTO) 26.7 % (22.0-44.0); MEAN CORPUSCULAR HEMOGLOBIN 32.3 pg (26.0-34.0); MEAN CORPUSCULAR HGB CONC 33.5 G/dL (31.0-37.0); MEAN CORPUSCULAR VOLUME 96 fL (80-100); MONOCYTES # (AUTO) 0.5 K/uL (0.1-1.0); MONOCYTES % (AUTO) 7.5 % (2.0-9.0); NEUTROPHILS # (AUTO) 3.9 K/uL (1.8-7.7); NEUTROPHILS % (AUTO) 64.8 % (40.0-70.0); PLATELET COUNT (AUTO) 217 K/uL (150-450); RED CELL DISTRIBUTION WIDTH 13.6 % (11.5-14.5); WHITE BLOOD COUNT (AUTO) 6.1 K/uL (4.5-11.0)
[2023-12-11 08:20] LABS: ALANINE AMINOTRANSFERASE 19 U/L (12-78); ALBUMIN 3.2 g/dL (3.4-5.0); ALKALINE PHOSPHATASE 67 U/L (46-116); ANION GAP 10 mmol/L (8-16); ASPARTATE AMINOTRANSFERASE 16 U/L (15-37); BILIRUBIN,TOTAL 0.4 mg/dL (0.1-1.0); CALCIUM, TOTAL 9.3 mg/dL (8.8-10.5); CARBON DIOXIDE 27 mmol/L (22-29); CHLORIDE 104 mmol/L (98-107); CREATININE 0.48 mg/dL (0.60-1.30); GLOMERULAR FILTR. RATE CALC > 60 mL/min (>60); GLUCOSE,RANDOM 85 mg/dL (70-110); POTASSIUM 4.1 mmol/L (3.5-5.1); SODIUM SERUM 141 mmol/L (136-145); TOTAL PROTEIN, SERUM 6.6 g/dL (6.4-8.2); UREA NITROGEN, BLOOD 16 mg/dL (7-18)
[2023-12-11] MEDS: BISACODYL 5 MG EC TABLET PO PRN (10:47)
[2023-12-11 20:16] VITALS: BP 122/71; PULSE 74; RESP 18; TEMP 97.5
[2023-12-12 08:47] VITALS: BP 133/86; PULSE 99; RESP 18; TEMP 98.8
[2023-12-12 21:51] VITALS: BP 119/71; PULSE 76; RESP 18; TEMP 97.1
[2023-12-13 08:07] VITALS: BP 126/74; PULSE 98; RESP 17; TEMP 98.2
[2023-12-13 20:39] VITALS: BP 114/74; PULSE 74; RESP 18; TEMP 97.3
[2023-12-14 08:16] VITALS: BP 119/76; PULSE 72; RESP 18; TEMP 97.1
[2023-12-14 20:22] VITALS: BP 90/60; PULSE 82; RESP 18; TEMP 98.5
[2023-12-15 10:11] VITALS: BP 125/60; PULSE 93; RESP 18; TEMP 97
[2023-12-15 21:07] VITALS: BP 126/56; PULSE 88; RESP 19; TEMP 98.6
[2023-12-16 08:00] VITALS: BP 132/62; PULSE 88; RESP 20; TEMP 98.3
[2023-12-16 20:08] VITALS: BP 121/78; PULSE 93; RESP 18; TEMP 98.8
[2023-12-17 10:11] VITALS: BP 135/70; PULSE 89; RESP 18; TEMP 98.8
[2023-12-17 20:27] VITALS: BP 116/62; PULSE 88; RESP 18; TEMP 98.6
[2023-12-18 08:08] VITALS: BP 126/66; PULSE 92; RESP 17; TEMP 97.7
[2023-12-18 21:41] VITALS: BP 116/65; PULSE 78; RESP 18; TEMP 98
[2023-12-19 08:40] VITALS: BP 120/57; PULSE 89; RESP 18; TEMP 97.6
[2023-12-19 21:02] VITALS: BP 140/66; PULSE 100; RESP 20; TEMP 97.6
[2023-12-20 08:40] VITALS: BP 140/88; PULSE 89; RESP 18; TEMP 98
[2023-12-20 09:56] VITALS: BP 136/88; PULSE 83; RESP 18; TEMP 98.3
[2023-12-20 20:42] VITALS: BP 98/60; PULSE 81; RESP 17; TEMP 98.6
[2023-12-21 09:16] VITALS: BP 125/68; PULSE 86; RESP 18; TEMP 97.8
[2023-12-21 10:04] VITALS: BP 130/70; PULSE 79; RESP 18; TEMP 97.8
[2023-12-21 21:04] VITALS: BP 143/69; PULSE 90; RESP 18; TEMP 98.7
[2023-12-22 08:37] VITALS: BP 121/70; PULSE 94; RESP 18; TEMP 97.5
[2023-12-22 21:03] VITALS: BP 116/82; PULSE 86; RESP 18; TEMP 98.5
[2023-12-23 11:49] VITALS: BP 126/74; PULSE 90; RESP 17; TEMP 97.6
[2023-12-23 20:40] VITALS: BP 119/79; PULSE 78; RESP 18; TEMP 97.5
[2023-12-24 08:08] VITALS: BP 116/72; PULSE 76; RESP 18; TEMP 97.4
[2023-12-24 20:24] VITALS: BP 114/76; PULSE 78; RESP 18; TEMP 98.1
[2023-12-25 12:13] VITALS: BP 152/89; PULSE 79; RESP 18; TEMP 98.8
[2023-12-25 20:06] VITALS: BP 115/75; PULSE 75; RESP 18; TEMP 97.1
[2023-12-26 09:24] VITALS: BP 123/86; PULSE 73; RESP 18; TEMP 98
[2023-12-26 20:13] VITALS: BP 113/65; PULSE 77; RESP 18; TEMP 98.8
[2023-12-27 09:06] VITALS: BP 117/81; PULSE 77; RESP 16; TEMP 97.1
[2023-12-27 20:07] VITALS: BP 104/79; PULSE 88; RESP 18; TEMP 98.1
[2023-12-28 08:31] VITALS: BP 139/89; PULSE 83; RESP 18; TEMP 98.3
[2023-12-28 21:00] VITALS: BP 104/59; PULSE 95; RESP 18; TEMP 97.7
[2023-12-29 08:11] VITALS: BP 106/56; PULSE 83; RESP 16; TEMP 98.4
[2023-12-29 22:22] VITALS: BP 110/70; PULSE 87; RESP 18; TEMP 97.6
[2023-12-30 08:30] VITALS: BP 124/67; PULSE 89; RESP 19; TEMP 97
[2023-12-30 20:16] VITALS: BP 115/73; PULSE 85; RESP 18; TEMP 97.6
[2023-12-31 08:03] VITALS: BP 117/78; PULSE 77; RESP 18; TEMP 97.1
[2023-12-31 21:34] VITALS: BP 105/66; PULSE 81; RESP 18; TEMP 97.5
[2024-01-01 08:19] VITALS: BP 133/68; PULSE 87; RESP 18; TEMP 98
[2024-01-01 21:39] VITALS: BP 133/68; PULSE 87; RESP 18; TEMP 98
[2024-01-02 08:05] VITALS: BP 123/78; PULSE 77; RESP 18; TEMP 97.1
[2024-01-02 20:18] VITALS: BP 110/80; PULSE 92; RESP 18; TEMP 97.8
[2024-01-03 09:32] VITALS: BP 122/80; PULSE 89; RESP 18; TEMP 98.2
[2024-01-03 21:01] VITALS: BP 130/70; PULSE 79; RESP 16; TEMP 98
[2024-01-04 10:02] VITALS: BP 123/71; PULSE 86; RESP 17; TEMP 97.9
[2024-01-04 20:09] VITALS: BP 110/55; PULSE 92; RESP 18; TEMP 98.8
[2024-01-05 08:40] VITALS: BP 148/55; PULSE 62; RESP 18
[2024-01-05 21:18] VITALS: BP 128/66; PULSE 96; RESP 18; TEMP 98.3
[2024-01-06 14:09] VITALS: BP 141/74; PULSE 95; RESP 18; TEMP 98
[2024-01-06 20:40] VITALS: BP 119/76; PULSE 72; RESP 18; TEMP 97.4
[2024-01-07 08:11] VITALS: BP 114/76; PULSE 62; RESP 18; TEMP 97.1
[2024-01-07 20:07] VITALS: BP 121/71; PULSE 76; RESP 18; TEMP 97.1
[2024-01-08 08:10] VITALS: BP 124/81; PULSE 76; RESP 18; TEMP 97.2
[2024-01-08 20:00] VITALS: BP 138/61; PULSE 95; RESP 19; TEMP 98
[2024-01-09 10:08] VITALS: BP 130/75; PULSE 81; RESP 18; TEMP 97.9
[2024-01-09 10:12] VITALS: BP 130/75; PULSE 81; RESP 17; TEMP 97.9
[2024-01-09 20:09] VITALS: BP 126/77; PULSE 74; RESP 18; TEMP 98.1
[2024-01-10 08:17] VITALS: BP 117/71; PULSE 72; RESP 18; TEMP 97.9
[2024-01-10 20:34] VITALS: BP 155/68; PULSE 103; RESP 18; TEMP 98.9
[2024-01-11 08:41] VITALS: BP 138/138; PULSE 90; RESP 18; TEMP 98.1
[2024-01-11 20:56] VITALS: BP 128/65; PULSE 95; RESP 18; TEMP 98.6
[2024-01-12 09:18] VITALS: BP 132/70; PULSE 88; RESP 18; TEMP 98
[2024-01-12 21:11] VITALS: BP 113/63; PULSE 88; RESP 18; TEMP 97.3
[2024-01-13 08:11] VITALS: BP 119/76; PULSE 62; RESP 18; TEMP 97.1
[2024-01-13 20:03] VITALS: BP 117/69; PULSE 95; RESP 18; TEMP 99.1
[2024-01-14 08:34] VITALS: BP 117/72; PULSE 63; RESP 18; TEMP 97.4
[2024-01-14 21:18] VITALS: BP 101/73; PULSE 79; RESP 18; TEMP 99
[2024-01-15 08:11] VITALS: BP 126/76; PULSE 77; RESP 18; TEMP 98.2
[2024-01-15 20:23] VITALS: BP 117/58; PULSE 93; RESP 18; TEMP 98.1
[2024-01-16 09:04] VITALS: BP 148/70; PULSE 85; RESP 18; TEMP 98.6
[2024-01-16 20:44] VITALS: BP 108/65; PULSE 91; RESP 18; TEMP 97.3
[2024-01-17 08:00] VITALS: RESP 18
[2024-01-17] MEDS ORDERED: MEGE400O44 PO (16:04)
[2024-01-17] MEDS ORDERED: MULT-711 PO (16:13)
[2024-01-17] MEDS ORDERED: THIA100T80 PO (16:13)
== END 2024-01-17 19:01 | DRG 750 ==
LOC: EMS 11:54 → ICUN 08-05 03:07 → 3EX 08-06 01:41 → 3EI 08-06 17:24
PROVIDERS: ADMIT Psychiatry & Neurology Child & Adolescent Psychiatry; ATTEND Psychiatry & Neurology Child & Adolescent Psychiatry
PROC: GZHZZZZ Group Psychotherapy (ICD-10-PCS; principal; 2023-08-09)
DX: F25.1 Schizoaffective disorder, depressive type (principal); E87.0 Hyperosmolality and hypernatremia; E44.0 Moderate protein-calorie malnutrition; G30.9 Alzheimer's disease, unspecified; F02.811 Dementia in other diseases classified elsewhere, unspecified severity, with agitation; Z66 Do not resuscitate; E87.6 Hypokalemia; F02.83 Dementia in other diseases classified elsewhere, unspecified severity, with mood disturbance; F02.84 Dementia in other diseases classified elsewhere, unspecified severity, with anxiety; N39.0 Urinary tract infection, site not specified; Z20.822 Contact with and (suspected) exposure to COVID-19; S00.11XA Contusion of right eyelid and periocular area, initial encounter; X58.XXXA Exposure to other specified factors, initial encounter; Y92.238 Other place in hospital as the place of occurrence of the external cause; Y93.89 Activity, other specified; Y99.8 Other external cause status; Z59.00 Homelessness unspecified; Z51.5 Encounter for palliative care; Z85.3 Personal history of malignant neoplasm of breast; Z90.12 Acquired absence of left breast and nipple; Z91.81 History of falling; Z68.1 Body mass index [BMI] 19.9 or less, adult
CPT/HCPCS: 70450; 71045; 80048; 80053; 80061; 80164; 80307; 81001; 83036; 83735; 84100; 84132; 84443; 85025; 87081; 87086; 87186; 92526; 92610; 96372; 97116; 97163; 97166; 97530; 97535; 99291; G0480; J1200; J1630; J2060; 36415-L1; 36415-TC